=== PATIENT | female | born 1980 | race Caucasian/White ===

== ENCOUNTER 2023-10-19 08:53 | Emergency (ER) | payer SELFPAY ==
[~2023-10-19] VITALS: Ht 162.6 cm; Wt 62.1 kg
[2023-10-19] MEDS ORDERED: ONDANSETRON 4 MG TAB.RAPDIS ONE (09:11)
[2023-10-19] MEDS: ONDANSETRON 4 MG TAB.RAPDIS SL ONE (09:14)
[2023-10-19] MEDS: BUTALBITAL/ASPIRIN/CAFFEINE 1 CAP CAPSULE PO PRN (09:37)
[2023-10-19] MEDS ORDERED: ONDANSETRON HCL/PF 4 MG/2 ML VIAL ONE (10:44)
[2023-10-19] MEDS ORDERED: KETOROLAC TROMETHAMINE INJ 30 MG/ML VIAL ONE (10:44)
[2023-10-19] MEDS: ONDANSETRON HCL/PF 4 MG/2 ML VIAL IVP ONE (11:06)
[2023-10-19] MEDS: IV NS 0.9% 1,000 ML BAG IV ONE (11:06)
[2023-10-19 11:25] LABS: PREGNANCY TEST URINE QUAL NEGATIVE (NEGATIVE)
[2023-10-19] MEDS: KETOROLAC TROMETHAMINE INJ 60 MG/2 ML VIAL IM ONE (11:36)
[2023-10-19 12:05] VITALS: BP 128/88; TEMP 98.5; O2SAT 97
== END 2023-10-19 12:05 | disposition home or self-care (01) ==
LOC: ER 08:55
DX: G43.909 Migraine, unspecified, not intractable, without status migrainosus (principal); V89.2XXA Person injured in unspecified motor-vehicle accident, traffic, initial encounter; Y93.89 Activity, other specified; Y92.89 Other specified places as the place of occurrence of the external cause; Y99.8 Other external cause status
CPT/HCPCS: 99284; 96374; 96361; 96375; 84703; J1885; J2405; J7030; Q0162